=== PATIENT | female | born 1975 | race Caucasian/White ===

== ENCOUNTER → 2018-02-13 | Outpatient (CLI) | payer BC ==
[2018-02-13 15:44] LABS: EOS # 0.4 (0.04-0.40); EOS % 2.9 % (1.0-5.0); HEMATOCRIT 37.3 % (37.0-47.0); HEMOGLOBIN 11.8 g/dL (12.5-16.0); LYMPH# 2.8 (1.50-4.00); MEAN CELL VOLUME 74 fl (78-100); MEAN CORPUSCULAR HGB CONC 32 g/dL (33-37); MEAN PLATELET VOLUME 10.8 fl (7.4-10.4); MONO # 0.8 (0.20-0.80); PLATELET COUNT 399 K/mm3 (130-400); RED BLOOD COUNT 5.07 M/mm3 (4.10-5.30); RED CELL DISTRIBUTION WIDTH 15.5 % (11.5-14.5); WHITE BLOOD COUNT 13.5 K/mm3 (4.8-10.8)
[2018-02-13 15:49] LABS: ALBUMIN 4.2 g/dL (3.5-5.0); ALT/SGPT 60 U/L (9-52); AST-SGOT 32 U/L (14-36); BUN/CREATININE RATIO 17.5 (6.0-26.0); CALCIUM 9.7 mg/dL (8.4-10.2); CARBON DIOXIDE 28 mmol/L (22-30); GLUCOSE 164 mg/dL (65-105); POTASSIUM 3.6 mmol/L (3.6-5.0); SODIUM 138 mmol/L (137-145); TOTAL PROTEIN 8.6 g/dL (6.3-8.2)
[2018-02-13 15:52] LABS: MEAN CORPUSCULAR HEMOGLOBIN 23 pg (27-31); NEU # 9.5 (1.40-6.50)
[2018-02-13 15:53] LABS: TOTAL BILIRUBIN < 0.1 mg/dL (0.2-1.3)
[2018-02-13 16:02] LABS: URINE APPEARANCE CLEAR; URINE BILIRUBIN NEGATIVE (NEGATIVE); URINE BLOOD NEGATIVE (NEGATIVE); URINE COLOR YELLOW; URINE GLUCOSE NEGATIVE (NEGATIVE); URINE KETONE NEGATIVE (NEGATIVE); URINE LEUKOCYTE ESTERASE NEGATIVE (NEGATIVE); URINE NITRATE NEGATIVE (NEGATIVE); URINE PROTEIN(semi-quant) NEGATIVE (NEGATIVE); URINE UROBILINOGEN NORMAL (NORMAL); URINE WBC 0-1 /hpf (0-3)
== END ==
LOC: LAB 15:07
PROVIDERS: Nurse Practitioner Family
DX: R07.9 Chest pain, unspecified (principal); I10 Essential (primary) hypertension

== ENCOUNTER 2022-09-03 13:00 | Outpatient (RCR) | payer BC | END 2022-09-19 | disposition home or self-care (01) | LOC: PT | DX: M76.72 Peroneal tendinitis, left leg (principal) ==